=== PATIENT | female | born 1975 | race Caucasian/White ===

== ENCOUNTER → 2018-10-12 | Outpatient (CLI) | payer OTHER ==
--- NOTE | 2018-10-13 04:02 | MR ---
EXAMINATION TYPE: MR brain wo/w con DATE OF EXAM: 10/12/2018 COMPARISON: NONE HISTORY: 43-year-old female Essential tremor TECHNIQUE: Multiplanar, multisequence images of the brain and brainstem were acquired before and aft er administration of 9.5 mL IV Gadavist. Diffusion weighted imaging is performed. Additional sagitt al T2 FLAIR sequence was obtained to assess for white matter disease. FINDINGS: Motion artifacts are present. No evidence for acute infarction, hemorrhage, mass, mass effect, midline shift, herniation, effacemen t of basal cisterns, or extra-axial fluid collection. The ventricles and sulci are age-appropriate. Major intracranial flow voids are intact. T2/FLAIR weighted sequences show mild scattered burden of bright white matter change primarily in the subcortical and deep white matter regions of both cerebral hemispheres numbering approximately 5-10 on the right and 5 on the left. Midline structures demonstrate normal morphology. The craniocervical junction is normal. Post contrast images demonstrate no evidence of pathologic enhancement. Dural venous sinuses are pat ent. [id number] mucosal thickening ethmoid air cells, maxillary sinuses, and left frontal sinus. Ailin bes are intact. IMPRESSION: 1. No acute intracranial abnormality seen. 2. Mild scattered burden of T2 bright white matter change. Findings are nonspecific. They could refle ct early changes of chronic small vessel ischemic disease. Chronic migraines and early demyelinating disease could also be included in the differential especially given the patient's relatively younger age. 3. No enhancing lesions. 4. Mild chronic martel sinus disease.
== END | disposition home or self-care (01) ==
LOC: RADMRIMAIN 07:08
PROVIDERS: ATTEND Psychiatry & Neurology Neurology
DX: R90.89 Other abnormal findings on diagnostic imaging of central nervous system (principal); G25.0 Essential tremor
CPT/HCPCS: 70553; A9585

== ENCOUNTER 2018-12-14 09:29 | Day surgery (SDC) | payer OTHER ==
[2018-12-07 09:42] VITALS: BMI 28.7
[2018-12-14 09:45] VITALS: RESP 18; TEMP 97.1
[2018-12-14] MEDS ORDERED: LACTATED RINGERS 1,000 ML IV ONE ×2 (09:47)
--- NOTE | 2018-12-14 10:04 | P.PCN ---
Date of Procedure: 12/14/18 Operative Findings: Procedure: Lumbar Puncture . Preoperative Diagnoses: rule out M.S Postoperative Diagnosis: rule out M.S Anesthesia: Local with 1% lidocaine 5 ML's Condition: stable. Complications: none. Description of the procedure: Patient was consented in the preoperative area we discussed the risks benefits and alternatives to the procedure. The patient was Brought the patient into the procedure room and was placed in sitting position. The back was cleansed with iodine 3. At that point lidocaine 1% was used to anesthetize the skin, total of 5 mL was used. A 22 gauge spinal needle was advanced until spinal fluid was aspirated through the needle and a three - way stop cock. Opening pressure was low as CSF was not free flowing. CSF was obtained and sent off to laboratory for examination. Band-Aid was placed after the procedure the patient was instructed to lay flat for the next few hours. The patient was discharged from the PACU in stable condition.
[2018-12-14] MEDS ORDERED: IV FLUID CONTINUATION 1,000 ML IV ONE (10:11)
[2018-12-14 10:55] VITALS: BP 161/70; PULSE 81
[2018-12-14 13:08] LABS: T4, Free (Free Thyroxine) 1.21 ng/dL (0.78-2.19)
[2018-12-14 13:18] LABS: Glucose,CSF 54 mg/dL (40-70); Total Protein,CSF 50 mg/dL (12-60)
[2018-12-14 14:31] LABS: Appearance,CSF Clear; CSF Tube Number 4; Nucleated Cells, CSF 0 u/L (0-5); Red Blood Cell,CSF 0 u/L (0-10)
[2018-12-14 19:46] LABS: Rheumatoid Factor 5 IU/mL (0-15)
[2018-12-14 20:06] LABS: Anti-DNA, DS unit <1.0 IU/mL; DNA Double-Stranded NEGATIVE (NEGATIVE); RNP <0.2 AI
[2018-12-15 13:19] LABS: APTT 45 Sec(s) (<43); APTT 1:1 Mix 39 Sec(s) (<43); Dilute Russell Viper Venom 40 Sec(s) (<44)
[2018-12-15 13:33] LABS: IgG/Albumin Index (CSF) 0.57 (0.00 - 0.77)
[2018-12-17 10:36] LABS: VDRL, Qualitative CSF Nonreactive (Nonreactive)
[2018-12-17 12:08] LABS: Lyme IgG/IgM 0.1 Index
== END 2018-12-14 11:33 | disposition home or self-care (01) ==
LOC: ORPAIN 09:29
PROVIDERS: ATTEND Hospitalist
DX: R20.2 Paresthesia of skin (principal)
CPT/HCPCS: 62270; 82040; 82042; 82784; 82945; 83873; 83916; 84157; 84439; 84443; 84450; 84460; 85613; 85730; 85732; 86038; 86225; 86235; 86431; 86592; 86618; 86780; 87801; 88108; 89050

== ENCOUNTER → 2018-12-24 | Outpatient (CLI) | payer OTHER ==
--- NOTE | 2018-12-24 10:25 | MR ---
EXAMINATION TYPE: MR cervical spine wo con DATE OF EXAM: 12/24/2018 COMPARISON: None HISTORY: Cervical disc herniation / Tremor TECHNIQUE: Multiplanar, multisequence images of the cervical spine were acquired. Exam severely limited due to m otion artifact. C2-C3: No evidence for degenerative disc disease. No disc bulge/herniation or protrusion. No Canal stenosis. Foramina are patent bilaterally. C3-C4: No evidence for degenerative disc disease. No disc bulge/herniation or protrusion. No Canal stenosis. Foramina are patent bilaterally. C4-C5: There is moderate to severe degenerative disc disease with posterior spondylosis and central d isc protrusion. Abuts the anterior margin the spinal cord. Uncovertebral joint hypertrophy is noted. There is bilateral foraminal encroachment. C5-C6: Moderate to severe degenerative disc disease with posterior spondylosis and uncovertebral join t hypertrophy. Mild bilateral foraminal encroachment. There is compression of the thecal sac. No defi nite spinal cord contact. However, exam severely limited due to motion artifact. C6-C7: No disc herniation or canal stenosis. There is degenerative disc disease. No obvious canal lila nosis. C7-T1: No evidence for degenerative disc disease. No disc bulge/herniation or protrusion. No Canal stenosis. Foramina are patent bilaterally. Cervical segments are intact. There is normal alignment. Assessment spinal cord for abnormal signal nondiagnostic due to severe motion artifact. Craniovertebral junction relationships are within sandie l limits. There is a 1.2 cm left adrenal nodule. Multiple vertebral body hemangioma noted. IMPRESSION: 1. Severely limited exam due to extreme motion artifact. Does appear to be significant degenerative d isc disease C4-5 and C5-C6 with posterior spondylosis. Suspect disc protrusions at both levels which compress the thecal sac and result in bilateral foraminal encroachment. Findings greater at C4-C5 wit h suggestion of central canal stenosis. Disc protrusion may abut the anterior margin of the spinal co rd. However, assessment markedly limited due to severe motion. 2. There appears to be disc protrusions on sagittal images within the upper thoracic spine which coul d be correlated with dedicated thoracic spine MRI. 3. 1.2 cm left thyroid nodule.
== END | disposition home or self-care (01) ==
LOC: RADMRIMAIN 09:38
PROVIDERS: ATTEND Psychiatry & Neurology Neurology
DX: M50.221 Other cervical disc displacement at C4-C5 level (principal); E04.1 Nontoxic single thyroid nodule
CPT/HCPCS: 72141

== ENCOUNTER → 2020-05-11 | Outpatient (CLI) | payer OTHER ==
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
== END | disposition home or self-care (01) ==
LOC: RADMRIMAIN 18:38
PROVIDERS: ATTEND Nurse Practitioner Family
DX: S83.281A Other tear of lateral meniscus, current injury, right knee, initial encounter (principal); M25.461 Effusion, right knee